=== PATIENT | male | born 1995 | race Two or more races ===

== ENCOUNTER 2016-06-12 21:54 | Emergency (ER) | payer OTHER ==
[2016-06-12] MEDS ORDERED: ALBUTEROL/IPRATROPIUM 2.5/0.5 MG 3 ML/EACH DOSE ONE (22:24)
[2016-06-12] MEDS ORDERED: PREDNISONE 20 MG TABLET ONE (22:44)
[2016-06-12] MEDS ORDERED: ALBUTEROL NEB 2.5 MG/3 ML VIAL.NEB NEB ONE (23:44)
--- NOTE | 2016-06-13 07:50 | RAD ---
CHEST 2 VIEWS HISTORY: Shortness of breath, history of asthma. Frontal and lateral chest radiographs dated 06/12/2016. COMPARISON: None. FINDINGS: LUNG VOLUMES: Moderately severe hyperinflation. FOCAL AIRSPACE OPACITY: No gross airspace consolidation. PLEURAL EFFUSION: None. CARDIOMEDIASTINAL SILHOUETTE: Nonenlarged. PNEUMOTHORAX: None identified. OSSEOUS STRUCTURES: No grossly destructive lesions. IMPRESSION: Hyperinflation compatible with obstructive pulmonary disease versus exuberant inspiratory effort in a younger individual. No acute cardiopulmonary process noted.
== END 2016-06-13 01:14 | disposition home or self-care (01) ==
LOC: ED 21:54
DX: J45.901 Unspecified asthma with (acute) exacerbation (principal)
CPT/HCPCS: 71020; 94640 ×2; 94664; 99283 ×2; J7512